=== PATIENT | female | born 1975 | race Two or more races ===

== ENCOUNTER 2022-12-04 07:38 | Observation (INO) | payer BC ==
[2022-12-01 11:08] LABS: BASOPHILS % 0.4 % (0.0-1.0); EOSINOPHILS # (AUTO) 0.2 (0.0-0.4); EOSINOPHILS % 1.6 % (0.0-6.0); HEMATOCRIT 44.2 % (34.2-44.1); LYMPHOCYTES # (AUTO) 2.8 (1.0-3.2); LYMPHOCYTES % 30.6 % (18.0-39.1); MEAN CORPUSCULAR HEMOGLOBIN 24.7 pg (28-32); MEAN CORPUSCULAR HGB CONC 29.4 g/dL (31-35); MEAN CORPUSCULAR VOLUME 83.9 fL (81-99); MONOCYTES # (AUTO) 0.5 (0.2-0.8); MONOCYTES % 5.1 % (4.4-11.3); NEUTROPHILS # (AUTO) 5.8 (2.1-6.9); NEUTROPHILS % 62.1 % (38.7-80.0); PLATELET COUNT 313 x10e3/uL (140-360); RED BLOOD COUNT 5.27 x10e6/uL (3.6-5.1); RED CELL DISTRIBUTION WIDTH 15.3 % (11.7-14.4)
[2022-12-01 11:21] LABS: INR 0.96
[2022-12-01 11:22] LABS: PARTIAL THROMBOPLASTIN TIME 30.4 seconds (23.8-35.5)
[2022-12-01 11:26] LABS: ANION GAP 16.3 mmol/L (8-16); CALCIUM 9.5 mg/dL (8.4-10.2); CREATININE, SERUM 0.59 mg/dL (0.57-1.11); POTASSIUM 4.3 mmol/L (3.5-5.1)
[~2022-12-04] VITALS: Ht 157.5 cm; Wt 61.2 kg
[2022-12-04] VITALS (7 sets, daily range): BP systolic 112–134; BP diastolic 75–87
[~2022-12-04 07:38] MED LIST: GLIMEPIRIDE2 MG PO; LIDOCAINE 2%/ EPINEPHRINE 20ML MDV ONE; LYRICA50 MG PO; MELOXICAM7.5 MG PO; SYNJARDY 12.5-1 EACH PO; THROMBIN FOR SOLN 5,000 UNIT VIAL ONE; ULTRAM 50MG50 MG PO; Vancomycin IV 1 GM VIAL ONE
[2022-12-04] MEDS ORDERED: CEFAZOLIN SODIUM 2 GM ONE (08:11)
[2022-12-04] MEDS ORDERED: SUGAMMADEX SODIUM 200 MG/2 ML VIAL IV ONE (09:35)
[2022-12-04] MEDS ORDERED: ACETAMINOPHEN 1000 MG/100 ML 100 ML IV ONE (09:35)
[2022-12-04] MEDS ORDERED: MAGNESIUM/ALUMINUM/SIMETHICONE 30 ML UDC PO PRN ×2 (10:15→10:30)
[2022-12-04] MEDS ORDERED: HYDROMORPHONE 2MG/ML 2 MG/ML ML IV PRN ×2 (10:15→10:30)
[2022-12-04] MEDS ORDERED: ZOLPIDEM TARTRATE 5 MG TAB PO PRN ×2 (10:15→10:30)
[2022-12-04] MEDS ORDERED: ACETAMINOPHEN 325 MG TAB PO PRN ×2 (10:15→10:30)
[2022-12-04] MEDS ORDERED: ONDANSETRON HCL INJ 2MG/ML 2ML 2 MG/ML VIAL IV PRN ×2 (10:15→10:30)
[2022-12-04] MEDS ORDERED: CARISOPRODOL 350 MG TAB PO PRN (10:15)
[2022-12-04] MEDS ORDERED: PROMETHAZINE HCL (IM) 25 MG/ML VIAL IM PRN ×2 (10:15→10:30)
[2022-12-04] MEDS ORDERED: TRAMADOL HCL 50 MG TAB PO PRN ×2 (10:15→14:00)
[2022-12-04] MEDS ORDERED: LACTATED RINGER'S 1,000 ML IV SCH (10:15)
[2022-12-04] MEDS ORDERED: Morphine 10mg syringe 10 MG/ML INJ IM PRN ×2 (10:15→10:30)
[2022-12-04] MEDS ORDERED: OXYCODONE/ACETAMINOPHEN 5-325 1 EACH TABLET PO PRN (10:15)
[2022-12-04] MEDS ORDERED: HYDROCODON-ACE1 EA12 PO (12:01)
[2022-12-04] MEDS ORDERED: LIDOCAINE HCL 2% LOCAL INJ 5 ML SDV VIAL INJ ONE (12:22)
[2022-12-04] MEDS ORDERED: DEXAMETHASONE SOD PHOS INJ 4 MG/ML SDV ONE (12:22)
[2022-12-04] MEDS ORDERED: ONDANSETRON HCL INJ 2MG/ML 2ML 2 MG/ML VIAL ONE (12:22)
[2022-12-04] MEDS ORDERED: POVIDONE IODINE 0.05% 0.05 % ML PO ONE (12:22)
[2022-12-04] MEDS ORDERED: ESMOLOL HCL 100MG/10ML 10 MG/ML VIAL ONE (12:22)
[2022-12-04] MEDS ORDERED: PROPOFOL IV EMULSION 10 MG/ML 20 ML VIAL ONE (12:22)
[2022-12-04] MEDS ORDERED: ROCURONIUM BROMIDE 10 MG/ML 5ML VIAL IV ONE (12:22)
[2022-12-04] MEDS ORDERED: FENTANYL CITRATE/PF 100MCG/2 ML INJ ONE ×2 (12:29→12:57)
[2022-12-04] MEDS ORDERED: CARISOPRODOL 350 MG TAB ONE (12:47)
[2022-12-04] MEDS ORDERED: OXYCODONE/ACETAMINOPHEN 5-325 1 EACH TABLET ONE (12:47)
[2022-12-04] MEDS: LACTATED RINGER'S 1,000 ML IV SCH ×2 (14:22→18:50)
[2022-12-04] MEDS: HYDROMORPHONE 1MG/1ML INJ IV PRN ×2 (14:27→19:55)
[2022-12-04] MEDS: PREGABALIN 50 MG CAP PO SCH (16:41)
[2022-12-04] MEDS: GLIMEPIRIDE 2 MG TAB PO SCH (16:43)
[2022-12-04] MEDS: EMPAGLIFLOZIN PO SCH (17:00)
[2022-12-04] MEDS: METFORMIN HCL PO SCH (17:00)
[2022-12-04] MEDS: CARISOPRODOL 350 MG TAB PO PRN ×2 (17:38→21:32)
[2022-12-04] MEDS: OXYCODONE/ACETAMINOPHEN 5-325 1 EACH TABLET PO PRN (17:40)
[2022-12-04] MEDS: CEPACOL SORE THROAT LOZENGES PO PRN (19:28)
[2022-12-05 00:43] VITALS: BP 119/88
[2022-12-05] MEDS: HYDROMORPHONE 1MG/1ML INJ IV PRN (01:54)
[2022-12-05] MEDS: CARISOPRODOL 350 MG TAB PO PRN ×3 (02:05→12:20)
[2022-12-05] MEDS: CEPACOL SORE THROAT LOZENGES PO PRN (02:05)
[2022-12-05] MEDS: LACTATED RINGER'S 1,000 ML IV SCH ×2 (02:06→11:30)
[2022-12-05 04:00] VITALS: BP 149/78
[2022-12-05] MEDS: OXYCODONE/ACETAMINOPHEN 5-325 1 EACH TABLET PO PRN ×2 (07:43→12:22)
[2022-12-05] MEDS: EMPAGLIFLOZIN PO SCH (07:46)
[2022-12-05] MEDS: METFORMIN HCL PO SCH (07:46)
[2022-12-05 08:32] VITALS: BP 121/84
[2022-12-05 08:54] VITALS: BP 121/84
[2022-12-05] MEDS ORDERED: MELOXICAM 7.5 MG TAB PO SCH (09:00)
[2022-12-05] MEDS: GLIMEPIRIDE 2 MG TAB PO SCH (09:04)
[2022-12-05] MEDS: PREGABALIN 50 MG CAP PO SCH (09:06)
[2022-12-05 11:57] VITALS: BP 116/79
== END 2022-12-05 13:29 | disposition home or self-care (01) ==
LOC: OR 07:38 → PACU V 10:17 → MED/SURG 13:09
PROVIDERS: ADMIT Neurological Surgery; ATTEND Neurological Surgery
DX: M50.121 Cervical disc disorder at C4-C5 level with radiculopathy (principal); M50.122 Cervical disc disorder at C5-C6 level with radiculopathy; Z01.818 Encounter for other preprocedural examination; Z20.822 Contact with and (suspected) exposure to COVID-19; E11.9 Type 2 diabetes mellitus without complications; M19.90 Unspecified osteoarthritis, unspecified site
CPT/HCPCS: 0223U; 20931; 22551; 22552; 22845; 36415 ×3; 71046; 72040; 76000; 80048; 81025; 82948 ×2; 85025; 85610; 85730; 86850; 86900; 88304; 88311; 93005; C1713 ×6; C1763; G0378 ×2; J0131; J0690 ×2; J1100; J1170 ×2; J2001 ×2; J2405 ×2; J2704; J3010; J3370; J7121